=== PATIENT | female | born 1950 | race Caucasian/White ===

== ENCOUNTER 2017-06-07 08:40 | Outpatient (CLI) | payer MEDICARE ==
[2017-06-07 12:19] LABS: BASOPHILS % (AUTO) 0.9 %; EOSINOPHILS # (AUTO) 0.2 10^3/uL (0.0-0.7); EOSINOPHILS % (AUTO) 3.4 %; HCT - HEMATOCRIT 42.9 % (37.0-47.0); LYMPHOCYTES # (AUTO) 1.5 10^3/uL (1.5-3.5); LYMPHOCYTES % (AUTO) 31.5 %; MEAN CORPUSCULAR HEMOGLOBIN 28.6 pg (27.0-31.0); MEAN CORPUSCULAR HGB CONC 32.8 g/dL (32.0-36.0); MEAN CORPUSCULAR VOLUME 87.4 fL (81.0-99.0); MEAN PLATELET VOLUME 9.1 fL (7.9-10.8); MONOCYTES # (AUTO) 0.5 10^3/uL (0.0-1.0); MONOCYTES % (AUTO) 11.6 %; NEUTROPHILS # (AUTO) 2.5 10^3/uL (1.5-6.6); NEUTROPHILS % (AUTO) 52.6 %; NUCLEATED RED BLOOD CELLS AUTO 0.1 /100WBC; RED BLOOD COUNT 4.91 10^6/uL (4.20-5.40); RED CELL DISTRIBUTION WIDTH 13.4 % (12.0-15.0); UNCORRECTED WHITE BLOOD COUNT 4.7 x10^3/uL; WHITE BLOOD COUNT 4.7 x10^3/uL (4.8-10.8)
[2017-06-07 12:29] LABS: ALBUMIN/GLOBULIN RATIO 1.3 (1.0-2.2); BILIRUBIN,TOTAL 0.3 mg/dL (0.2-1.0); BUN - BLOOD UREA NITROGEN 13 mg/dL (6-20); CALCIUM 8.8 mg/dL (8.5-10.3); CARBON DIOXIDE - CO2 24 mmol/L (21-32); CHLORIDE 104 mmol/L (101-111); CHOL/HDL RATIO 4.1 (<4.4); CHOLESTEROL 210 mg/dL; CREATININE 0.7 mg/dL (0.4-1.0); GFR - MDRD 83 (>89); GLUCOSE 89 mg/dL (70-100); HDL CHOLESTEROL 51 mg/dL; LDL/HDL RATIO 2.6 (<4.4); POTASSIUM 4.3 mmol/L (3.5-5.0); SODIUM 138 mmol/L (135-145); TRIGLYCERIDES 119 mg/dL; VLDL CHOLESTEROL 24 mg/dL
== END 2017-06-07 08:41 | disposition home or self-care (01) ==
LOC: LAB.R 08:40
PROVIDERS: ATTEND Internal Medicine
DX: R89.9 Unspecified abnormal finding in specimens from other organs, systems and tissues (principal); I10 Essential (primary) hypertension; Z79.899 Other long term (current) drug therapy
CPT/HCPCS: 80053; 80061; 84443; 85025

== ENCOUNTER 2018-03-07 13:55 | Emergency (ER) | payer MEDICARE ==
--- NOTE | 2018-03-07 14:50 | ED Physician Documentation ---
PD HPI URI - Stated complaint Stated Complaint: SORE THROAT,COUGH,EAR PX - Chief complaint Chief Complaint: Heent - History obtained from History obtained from: Patient - History of Present Illness Timing - onset: How many days ago (5) Timing duration: Days (5) Timing details: Gradual onset Pain level max: 6 Pain level now: 5 Associated symptoms: Ear pain (drainage to the L ear), Nasal congestion, Rhinorrhea, Sore throat, Dry cough. No: Fever, Chills, Chest pain, Dyspnea, NVD Contributing factors: Sick contact Improves by: Rest Worsened by: Activity, Breathing Similar symptoms before: Has not had sx before Recently seen: Not recently seen Review of Systems Constitutional: denies: Fever, Chills Ears: reports: Ear pain (L ear) Nose: reports: Rhinorrhea / runny nose, Congestion Throat: reports: Sore throat Cardiac: denies: Chest pain / pressure GI: denies: Vomiting, Diarrhea Skin: denies: Rash Neurologic: denies: Headache PD PAST MEDICAL HISTORY - Past Medical History Past Medical History: Yes Cardiovascular: Hypertension Respiratory: None Endocrine/Autoimmune: None GI: Hemorrhoids : None HEENT: Other Psych: None Musculoskeletal: Osteoarthritis Derm: None - Past Surgical History Past Surgical History: Yes General: Appendectomy Ortho: ACL reconstruction /[employer]STRUCTOR: Hysterectomy HEENT: Tonsil/Adenoidectomy - Present Medications Home Medications: Ambulatory Orders Medication Instructions Recorded Confirmed Aspirin 325 mg PO DAILY 09/13/17 09/14/17 Ibuprofen 200 mg PO ONCE 09/13/17 09/14/17 Losartan Potassium 100 mg PO DAILY 09/13/17 09/14/17 Azithromycin [Zithromax] 0 mg PO DAILY #6 tablet 03/07/18 Benzonatate [Tessalon Perle] 100 - 200 mg PO TID PRN #30 capsule 03/07/18 - Allergies Allergies/Adverse Reactions: Allergies Allergy/AdvReac Type Severity Reaction Status Date / Time dimenhydrinate Allergy Intermediate Hallucinati Verified 03/07/18 14:13 [From Dramamine] ons diphenhydramine AdvReac Anxiety Verified 03/07/18 14:13 [From Benadryl] - Social History Does the pt smoke?: Yes Smoking Status: Current every day smoker Does the pt drink ETOH?: Yes Does the pt have substance abuse?: No PD ED PE NORMAL - Vitals Vital signs reviewed: Yes - General General: Alert and oriented X 3 - HEENT HEENT: Moist mucous membranes, Pharynx benign, Other (L ear - ruptured TM with purulent drainage) - Neck Neck: Supple, no meningeal sign, No adenopathy - Cardiac Cardiac: RRR, Strong equal pulses - Respiratory Respiratory: No respiratory distress, Clear bilaterally - Abdomen Abdomen: Soft, Non tender, Non distended - Derm Derm: Warm and dry, No rash - Neuro Neuro: Alert and oriented X 3 - Psych Psych: Normal mood, Normal affect Results - Vitals Vitals: Vital Signs - 24 hr 03/07/18 03/07/18 14:11 15:00 Temperature 36.5 C Heart Rate 94 68 Respiratory 18 18 Rate Blood Pressure 147/99 H 150/90 H O2 Saturation 96 96 Oxygen O2 Source Room air PD MEDICAL DECISION MAKING - ED course Complexity details: considered differential, d/w patient ED course: Patient is a 67-year-old female with a ruptured tympanic membrane and purulent drainage. Will place on antibiotics. No evidence of pneumonia clinically. Will also place on antitussives. She is well-appearing, nontoxic. Afebrile. No hypoxia. Patient counseled regarding signs and symptoms for which I believe and urgent re-evaluation would be necessary. Patient with good understanding of and agreement to plan and is comfortable going home at this time This document was made in part using voice recognition software. While efforts are made to proofread this document, sound alike and grammatical errors may occur. - Sepsis Event Vital Signs: Vital Signs - 24 hr 03/07/18 03/07/18 14:11 15:00 Temperature 36.5 C Heart Rate 94 68 Respiratory 18 18 Rate Blood Pressure 147/99 H 150/90 H O2 Saturation 96 96 Oxygen O2 Source Room air Departure - Departure Disposition: 01 Home, Self Care Clinical Impression: URI, acute Otitis media with rupture of tympanic membrane Qualifiers: Laterality: left Qualified Code(s): H66.92 - Otitis media, unspecified, left ear Condition: Good Instructions: ED Otitis Media Acute Adult Follow-Up: Josr Valadez MD [Primary Care Provider] - Within 1 week Prescriptions: Azithromycin [Zithromax] 0 mg PO DAILY #6 tablet Benzonatate [Tessalon Perle] 100 - 200 mg PO TID PRN #30 capsule PRN Reason: Cough Comments: Return if you worsen. Take all antibiotics until gone. Follow up with your doctor to ensure that your ear drum is healing. Discharge Date/Time: 03/07/18 15:00
[2018-03-07 15:39] VITALS: BP 150/90
== END 2018-03-07 15:00 | disposition home or self-care (01) ==
LOC: ED 13:55
DX: J06.9 Acute upper respiratory infection, unspecified (principal); H66.92 Otitis media, unspecified, left ear; I10 Essential (primary) hypertension; F17.200 Nicotine dependence, unspecified, uncomplicated; Z79.82 Long term (current) use of aspirin
CPT/HCPCS: 99283

== ENCOUNTER 2020-11-13 08:00 | Outpatient (CLI) | payer MEDICARE ==
[2020-11-13 18:20] LABS: BASOPHILS # (AUTO) 0.1 10^3/uL (0.0-0.1); BASOPHILS % (AUTO) 0.6 %; EOSINOPHILS # (AUTO) 0.1 10^3/uL (0.0-0.7); EOSINOPHILS % (AUTO) 1.5 %; HCT - HEMATOCRIT 44.3 % (37.0-47.0); LYMPHOCYTES # (AUTO) 1.6 10^3/uL (1.5-3.5); LYMPHOCYTES % (AUTO) 19.1 %; MEAN CORPUSCULAR HEMOGLOBIN 28.9 pg (27.0-31.0); MEAN CORPUSCULAR HGB CONC 31.6 g/dL (32.0-36.0); MEAN CORPUSCULAR VOLUME 91.3 fL (81.0-99.0); MEAN PLATELET VOLUME 10.5 fL (7.9-10.8); MONOCYTES # (AUTO) 0.9 10^3/uL (0.0-1.0); MONOCYTES % (AUTO) 10.2 %; NEUTROPHILS # (AUTO) 5.9 10^3/uL (1.5-6.6); NEUTROPHILS % (AUTO) 68.4 %; PLT - PLATELET COUNT 372 10^3/uL (130-450); RED BLOOD COUNT 4.85 10^6/uL (4.20-5.40); RED CELL DISTRIBUTION WIDTH 13.1 % (12.0-15.0); WHITE BLOOD COUNT 8.6 x10^3/uL (4.8-10.8)
[2020-11-13 18:58] LABS: ALBUMIN 4.1 g/dL (3.2-5.5); ALBUMIN/GLOBULIN RATIO 1.4 (1.0-2.2); ALKALINE PHOSPHATASE 66 IU/L (42-121); ALT ALANINE AMINOTRANSFERASE 17 IU/L (10-60); AST ASPARTATE AMINOTRANSFERASE 20 IU/L (10-42); BILIRUBIN,TOTAL 0.6 mg/dL (0.2-1.0); BUN - BLOOD UREA NITROGEN 13 mg/dL (6-20); CALCIUM 9.8 mg/dL (8.5-10.3); CARBON DIOXIDE - CO2 26 mmol/L (21-32); CHLORIDE 105 mmol/L (101-111); CHOL/HDL RATIO 3.8 (<4.4); CHOLESTEROL 236 mg/dL; CREATININE 0.6 mg/dL (0.4-1.0); GFR - MDRD 99 (>89); GLUCOSE 89 mg/dL (70-100); HDL CHOLESTEROL 62 mg/dL; LDL CHOLESTEROL,CALCULATED 149 mg/dL; LDL/HDL RATIO 2.4 (<4.4); POTASSIUM 4.6 mmol/L (3.5-5.0); SODIUM 137 mmol/L (135-145); TRIGLYCERIDES 123 mg/dL; VLDL CHOLESTEROL 25 mg/dL
[2020-11-13 20:10] LABS: THYROID STIMULATING HORMONE 2.04 uIU/mL (0.34-5.60)
== END 2020-11-13 23:59 | disposition home or self-care (01) ==
LOC: LAB.WCP 08:00
PROVIDERS: ATTEND Nurse Practitioner
DX: E78.5 Hyperlipidemia, unspecified (principal); I10 Essential (primary) hypertension; Z85.828 Personal history of other malignant neoplasm of skin
CPT/HCPCS: 36415; 80053; 80061; 83721; 84443; 85025

== ENCOUNTER 2020-11-14 15:42 | Outpatient (CLI) | payer MEDICARE ==
--- NOTE | 2020-11-14 17:30 | Ultrasound Report ---
PROCEDURE: Ext Limited Non Vascular INDICATIONS: LT ARM SOFT TISSUE MASS TECHNIQUE: Real-time scanning was performed of the left lateral upper arm, with image documentation. COMPARISON: None available. FINDINGS: 1.2 x 1.5 x 0.9 cm irregular, ill-defined isoechoic mass within the soft tissues correspon ding to the palpable abnormality. IMPRESSION: Possible soft tissue lipoma; however findings are nonspecific and differential would inc lude both benign and malignant etiologies. If indicated, contrast-enhanced soft tissue MRI could be p erformed for further characterization. Reviewed by: JACQUE Murillo on 11/14/2020 5:29 PM PST Approved by: Claritza Chopra MD on 11/14/2020 5:29 PM PST Station ID: [id number]
== END 2020-11-14 15:43 | disposition home or self-care (01) ==
LOC: DI 15:42
PROVIDERS: ATTEND Nurse Practitioner
DX: M79.89 Other specified soft tissue disorders (principal); R22.32 Localized swelling, mass and lump, left upper limb

== ENCOUNTER 2020-11-20 11:10 | Outpatient (CLI) | payer MEDICARE ==
--- NOTE | 2020-11-21 14:17 | Mammography Report ---
BILATERAL DIGITAL SCREENING MAMMOGRAM 3D/2D: 11/20/2020 CLINICAL: Baseline exam. Routine screening. No prior exams were available for comparison. There are scattered fibroglandular elements in both br easts. There is a possible irregular high density asymmetry in the right breast at 12 o'clock middle depth. No other significant masses, calcifications, or other findings are seen in either breast. IMPRESSION: INCOMPLETE: NEEDS ADDITIONAL IMAGING EVALUATION The possible irregular high density asymmetry in the right breast is indeterminate. Additional views with possible ultrasound are recommended. This exam was interpreted at Station ID: [id number]. NOTE: For mammograms, a report in lay terms will be sent to the patient. Approximately 15% of breast malignancies will not be visualized mammographically. In the management of a palpable breast mass, a negative mammogram must not discourage biopsy of a clinically suspicious lesion. Electronically Signed By: Jacquelin [email or web address]/[email or web address]:11/20/2020 15:19:16 ACR BI-RADS Category 0: Incomplete 3340F PARENCHYMAL PATTERN: (A) - The breast(s) demonstrate(s) scattered fibroglandular densities. BI-RADS CATEGORY: (0) - 0 Ultrasound [id number] Immediate follow-up LATERALITY: (B)
== END 2020-11-20 11:11 | disposition home or self-care (01) ==
LOC: DI.N 11:10
PROVIDERS: ATTEND Nurse Practitioner
DX: Z12.31 Encounter for screening mammogram for malignant neoplasm of breast (principal); R92.8 Other abnormal and inconclusive findings on diagnostic imaging of breast

== ENCOUNTER 2020-11-28 08:48 | Outpatient (CLI) | payer MEDICARE ==
--- NOTE | 2020-11-29 09:26 | Mammography Report ---
UNILATERAL RIGHT DIGITAL DIAGNOSTIC MAMMOGRAM 3D/2D: 11/28/2020 CLINICAL: Patient returns today to evaluate a focal asymmetry in the right breast. Comparison is made to exam dated: 11/20/2020 mammogram - [facility]. There are sca ttered fibroglandular elements in right breast. There is a possible asymmetry in the right breast at 12 o'clock middle depth. This is not seen in ad ditional views. No other significant masses or calcifications are seen in the breast. IMPRESSION: NEGATIVE There is no mammographic evidence of malignancy. Possible asymmetry in the right breast does not persist on additional views and is consistent with ov erlapping fibroglandular tissue and is benign. A 1 year screening mammogram is recommended. Exam findings were conveyed to the patient. This exam was interpreted at Station ID: [id number]. NOTE: For mammograms, a report in lay terms will be sent to the patient. Approximately 15% of breast malignancies will not be visualized mammographically. In the management of a palpable breast mass, a negative mammogram must not discourage biopsy of a clinically suspicious lesion. Electronically Signed By: Leandro Gonzalez M.D. slc/:11/28/2020 09:34:45 ACR BI-RADS Category 1: Negative 3341F PARENCHYMAL PATTERN: (A) - The breast(s) demonstrate(s) scattered fibroglandular densities. BI-RADS CATEGORY: (1) - 1 RECOMMENDATION: (ANNUAL) - Recommend routine annual screening mammography. [id number] 1 year screening LATERALITY: (B)
== END 2020-11-28 08:49 | disposition home or self-care (01) ==
LOC: DI 08:48
PROVIDERS: ATTEND Nurse Practitioner
DX: R92.8 Other abnormal and inconclusive findings on diagnostic imaging of breast (principal)

== ENCOUNTER 2021-05-28 09:48 | Day surgery (SDC) | payer MEDICARE ==
[2021-05-28] MEDS ORDERED: LACTATED RINGERS 1,000 ML IV ONE (09:50)
--- NOTE | 2021-05-28 10:38 | ANESTHESIA ---
Pre-Anesthesia VS, & Labs - Diagnosis Left shoulder mass - Procedure excision of left shoulder mass Vital Signs: Temp Pulse Resp BP Pulse Ox 36.4 C L 65 23 194/93 H 96 05/28/21 10:08 05/28/21 10:08 05/28/21 10:08 05/28/21 10:08 05/28/21 10:08 Height: 4 ft 11 in Weight (kg): 62.9 kg Body Mass Index: 28.0 BMI Classification: Overweight - NPO >8 hours - Is Patient ?: No Home Medications and Allergies Ibuprofen 200 mg PO ONCE 09/13/17 Losartan Potassium 100 mg PO DAILY 09/13/17 Allergies/Adverse Reactions: Allergies Allergy/AdvReac Type Severity Reaction Status Date / Time dimenhydrinate Allergy Intermediate Hallucinati Verified 03/07/18 14:13 [From Dramamine] ons codeine AdvReac Hallucinati Verified 05/28/21 10:13 ons diphenhydramine AdvReac Anxiety Verified 03/07/18 14:13 [From Benadryl] Anes History & Medical History - Anesthetic History Anesthesia Complications: reports: Post-Operative Nausea/Vomiting - Medical History Cardiovascular: reports: Hypertension Pulmonary: reports: None Gastrointestinal: reports: Hemorrhoids Urinary: reports: None Neuro: reports: None Musculoskeletal: reports: Osteoarthritis Endocrine/Autoimmune: reports: None Blood Disorders: reports: Anemia Skin: reports: None Smoking Status: Current every day smoker (1/2 pack per day. 35 years smoking history) Psychosocial: reports: Alcohol History of Cancer?: Yes (history of skin cancer) - Surgical History General: reports: Appendectomy Eyes Ears Nose Throat (EENT): reports: Tonsil/Adenoidectomy Gynecologic: reports: Hysterectomy Orthopedic: reports: ACL reconstruction Exam General: Alert, Oriented x3, Cooperative, No acute distress Dental: WNL Mouth Openin Fingerbreadth Neck Mobility: Normal Mallampati classification: II Thyromental Distance: 4-6 cm Mental/Cognitive Status: Alert/Oriented X3, Normal for patient Plan Anesthesia Type: MAC Consent for Procedure(s) Verified and Reviewed: Yes Code Status: Attempt Resuscitation ASA classification: 2-Mild systemic disease Is this case an emergency?: No
[2021-05-28] MEDS ORDERED: LIDOCAINE 2%-EPI 1:100000 20 ML MDV ONE (11:01)
[2021-05-28] MEDS ORDERED: BUPIVACAINE 0.25% PF 30 ML VIAL ONE (11:02)
[2021-05-28] MEDS ORDERED: MIDAZOLAM 2 MG/2 ML VIAL ONE (11:04)
[2021-05-28] MEDS ORDERED: fentaNYL 100 MCG/2 ML VIAL ONE (11:04)
[2021-05-28] MEDS ORDERED: PROPOFOL 500 MG/50 ML 500 MG/50 ML VIAL ONE (11:05)
[2021-05-28] MEDS ORDERED: LIDOCAINE 1% 50 ML MDV ONE (11:06)
[2021-05-28] MEDS ORDERED: BUPIVACAINE 0.25% PF 30 ML VIAL SUBQ ONE ×2 (11:43)
[2021-05-28] MEDS ORDERED: LIDOCAINE 1% 50 ML MDV SUBQ ONE ×2 (11:43)
--- NOTE | 2021-05-28 12:28 | OPERATIVE REPORT ---
Operative Report - General Procedure Date: 05/28/21 Planned Procedure: excision left shoulder lipoma Pre-Op Diagnosis: 5 cm left shoulder lipoma Procedure Performed: excison left shoulder lipoma intermediate repair 5 cm incision Post Op Diagnosis: same - Procedure Note Primary Surgeon: jonah salcedo md Anesthesia Technique: Local, MAC Pathology: benign, not sent Estimated Blood Loss (mL): 1 Drain/Tube Type: Other (none) Indications: painful and growing tumor Complications: none - Other Other Information/Narrative: The patient was properly identified brought to the operating room and placed in supine position. Monitored anesthesia care was given. Left shoulder was bumped slightly upwards. She was prepped and draped in a sterile fashion. Antibiotics were not given. Local anesthetic was given throughout the procedure. A vertical and elliptical 5 cm incision was made directly over the palpable lipoma. Dissection proceeded with cutting current. The lipoma was removed in its entirety with gentle retraction and cautery. Hemostasis was assured. Intermediate repair was then performed. Deep subcutaneous tissue was closed with interrupted 2-0 Vicryl suture. Buried interrupted subdermal 3-0 Vicryl sutures were then placed. Skin was closed with a running 4-0 Monocryl subcuticular suture. Dressing was applied. She tolerated the procedure well and was brought to recovery in good condition.
[2021-05-28 12:44] VITALS: BP 149/74
[2021-05-28] MEDS ORDERED: HYDROcod/ACETAM 5/325 MG TABLET PO PRN (14:39)
--- NOTE | 2021-05-28 16:45 | ANESTHESIA POST OP EVALUATION ---
Anesthesia Post Eval - Post Anesthesia Eval Vitals: Last Vital Signs Temp 36.7 C 05/28/21 12:05 Pulse 68 05/28/21 12:44 Resp 18 05/28/21 12:44 BP 149/74 H 05/28/21 12:44 Pulse Ox 98 05/28/21 12:44 CV Function Including HR & BP: Stable Pain Control: Satisfactory Nausea & Vomiting: Negative Mental Status: Baseline Respiratory Status: Airway Patent Hydration Status: Satisfactory Anesthesia Complications: None
== END 2021-05-28 09:49 | disposition home or self-care (01) ==
LOC: SDS 09:48
PROVIDERS: ATTEND Surgery
PROC: 0JBF0ZZ Excision of Left Upper Arm Subcutaneous Tissue and Fascia, Open Approach (ICD-10-PCS; 2021-05-28)
PROC: 0JQF0ZZ Repair Left Upper Arm Subcutaneous Tissue and Fascia, Open Approach (ICD-10-PCS; principal; 2021-05-28 10:45)
DX: D17.79 Benign lipomatous neoplasm of other sites (principal); F17.210 Nicotine dependence, cigarettes, uncomplicated; I10 Essential (primary) hypertension
CPT/HCPCS: 11406; 12032; J7120

== ENCOUNTER 2024-01-07 08:00 | Outpatient (CLI) | payer MEDICARE | END 2024-01-07 23:59 | disposition home or self-care (01) | LOC: LAB 08:00 | PROVIDERS: ATTEND Nurse Practitioner | DX: R30.0 Dysuria (principal) | CPT/HCPCS: 87077; 87086; 87181 ==

== ENCOUNTER 2024-02-14 10:17 | Outpatient (CLI) | payer MEDICARE ==
[2024-02-14 10:30] LABS: BASOPHILS # (AUTO) 0.1 10^3/uL (0.0-0.1); BASOPHILS % (AUTO) 0.9 %; EOSINOPHILS # (AUTO) 0.4 10^3/uL (0.0-0.7); EOSINOPHILS % (AUTO) 6.4 %; HCT - HEMATOCRIT 43.1 % (37.0-47.0); HGB - HEMOGLOBIN 13.5 g/dL (12.0-16.0); LYMPHOCYTES # (AUTO) 1.5 10^3/uL (1.5-3.5); LYMPHOCYTES % (AUTO) 22.7 %; MEAN CORPUSCULAR HEMOGLOBIN 28.7 pg (27.0-31.0); MEAN CORPUSCULAR HGB CONC 31.3 g/dL (32.0-36.0); MEAN CORPUSCULAR VOLUME 91.7 fL (81.0-99.0); MEAN PLATELET VOLUME 9.3 fL (7.9-10.8); MONOCYTES # (AUTO) 0.6 10^3/uL (0.0-1.0); MONOCYTES % (AUTO) 8.7 %; NEUTROPHILS % (AUTO) 61.1 %; PLT - PLATELET COUNT 419 10^3/uL (130-450); WHITE BLOOD COUNT 6.5 x10^3/uL (4.8-10.8)
[2024-02-14 11:01] LABS: ALBUMIN 4.1 g/dL (3.2-5.5); ALBUMIN/GLOBULIN RATIO 1.5 (1.0-2.2); ALKALINE PHOSPHATASE 62 IU/L (42-121); ALT ALANINE AMINOTRANSFERASE 25 IU/L (10-60); AST ASPARTATE AMINOTRANSFERASE 20 IU/L (10-42); BILIRUBIN,TOTAL 0.6 mg/dL (0.2-1.0); BUN - BLOOD UREA NITROGEN 13 mg/dL (6-20); CALCIUM 9.3 mg/dL (8.5-10.3); CARBON DIOXIDE - CO2 26 mmol/L (21-32); CHLORIDE 106 mmol/L (101-111); CHOL/HDL RATIO 2.8 (<4.4); CHOLESTEROL 191 mg/dL; CREATININE 0.7 mg/dL (0.6-1.3); GFR - MDRD 82 (>89); GLUCOSE 108 mg/dL (74-104); HDL CHOLESTEROL 69 mg/dL; LDL CHOLESTEROL,CALCULATED 105 mg/dL; LDL/HDL RATIO 1.5 (<4.4); POTASSIUM 4.2 mmol/L (3.5-4.5); SODIUM 139 mmol/L (135-145); THYROID STIMULATING HORMONE 1.78 uIU/mL (0.34-5.60); TOTAL PROTEIN 6.8 g/dL (6.4-8.9); TRIGLYCERIDES 84 mg/dL (48-352); VLDL CHOLESTEROL 17 mg/dL
== END 2024-02-14 10:18 | disposition home or self-care (01) ==
LOC: LAB 10:17
PROVIDERS: ATTEND Physician Assistant
DX: I10 Essential (primary) hypertension (principal); E78.5 Hyperlipidemia, unspecified
CPT/HCPCS: 36415; 80053; 80061; 83721; 84443; 85025

== ENCOUNTER 2024-04-03 08:00 | Outpatient (CLI) | payer MEDICARE ==
[2024-04-03 19:36] LABS: FECAL OCCULT BLOOD (FIT) NEGATIVE (NEGATIVE)
== END 2024-04-03 23:59 | disposition home or self-care (01) ==
LOC: LAB.N 08:00
PROVIDERS: ATTEND Nurse Practitioner
DX: Z12.11 Encounter for screening for malignant neoplasm of colon (principal)
CPT/HCPCS: 82274

== ENCOUNTER 2024-04-07 14:27 | Outpatient (CLI) | payer MEDICARE ==
--- NOTE | 2024-04-10 08:24 | Mammography Report ---
BILATERAL DIGITAL SCREENING MAMMOGRAM 3D/2D: 04/07/2024 CLINICAL: Routine screening. Comparison is made to exams dated: 11/28/2020 mammogram and 11/20/2020 mammogram - [facility]. There are scattered areas of fibroglandular density in both breasts (category b / 25%-50% glandular t issue). No significant masses, calcifications, or other findings are seen in either breast. There has been no significant interval change. IMPRESSION: NEGATIVE There is no mammographic evidence of malignancy. A 1 year screening mammogram is recommended. Based on the Tyrer Cuzick model (a risk assessment model) the patient's lifetime risk is 5.5% and her 10 year risk is 5.0%. According to the ACR, ACS, and NCCN guidelines, an annual breast MRI exam miah g with mammogram is recommended if the patient's lifetime risk is 20% or greater. This exam was interpreted at Station ID: [id number]. NOTE: For mammograms, a report in lay terms will be sent to the patient. Approximately 15% of breast malignancies will not be visualized mammographically. In the management of a palpable breast mass, a negative mammogram must not discourage biopsy of a clinically suspicious lesion. Electronically Signed By: Leandro butler/darline:04/07/2024 16:39:33 letter sent: No_Letter ACR BI-RADS Category 1: Negative 3341F PARENCHYMAL PATTERN: (A) - The breast(s) demonstrate(s) scattered fibroglandular densities. BI-RADS CATEGORY: (1) - 1 RECOMMENDATION: (ANNUAL) - Recommend routine annual screening mammography. [id number] 1 year screening LATERALITY: (B)
== END 2024-04-07 14:28 | disposition home or self-care (01) ==
LOC: DI 14:27
PROVIDERS: ATTEND Nurse Practitioner
DX: Z12.31 Encounter for screening mammogram for malignant neoplasm of breast (principal); R92.323 Mammographic fibroglandular density, bilateral breasts